=== PATIENT | male | born 1945 | race Caucasian/White ===

== ENCOUNTER 2018-11-22 13:51 | Emergency (ER) | payer MEDICARE ==
[~2018-11-22] VITALS: Ht 177.8 cm; Wt 127.0 kg
--- OUTSIDE RECORDS SUMMARY | 2018-11-22 13:54 | XMS REPORT | Clinical Summary ---
Author Author FABIENNE [facility] Address Unknown Phone Unavailable Care Team Providers Care General Surgery Physician Assistant Name Role Phone Sharpless PCP Allergies Comments Active Allergy Reactions Severity Noted Date Amlodipine Swelling 11/03/2015 Sulfa (Sulfonamide Rash Low 11/03/2015 Antibiotics) Medications End Date Status Medication Sig Dispensed Refills Start Date Active valsartan (DIOVAN) 160 MG Take 160 mg 0 tablet by mouth daily. Active Problems Problem Noted Date Osteoarthritis of left knee 03/21/2016 Left knee DJD 03/21/2016 Primary osteoarthritis of right knee 11/25/2015 Right knee DJD 11/25/2015 Social History Date Tobacco Use Types Packs/Day Years Used Never Smoker Smokeless Tobacco: Never Used Alcohol Use Drinks/Week oz/Week Comments No Sex Assigned at Date Recorded Not on file Industry Job Start Date Occupation Not on file Not on file Not on file Travel End Travel History Travel Start No recent travel history available. 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 06/28/2017 6194-1-001 / / [id number] Simplex Hv Radiopaque Bone Cement Joints Right: Knee GODWIN:ST Implanted: Qty: 2 on 11/25/2015 by Alejandro Ledezma MD [employer] 05/21/2020 5510-F-502 / / [id number] Comp Femoral #5 R 5510-F-502 - Joints Right: Knee GODWIN:ST [id number] JUSTINO Implanted: Qty: 1 on 11/25/2015 by Alejandro Ha MD 08/09/2020 5551-L-320 / / [id number] Patella Triathlon Asymmetric Joints Right: Knee GODWIN:ST 5551-L-320 - [id number] JUSTINO Implanted: Qty: 1 on 11/25/2015 by Alejandro Ha MD 08/09/2020 5520-B-600 / / [id number] Baseplt Tri Prim Tib 6 5520-B-600 - Joints Right: Knee GODWIN:ST [id number] JUSTINO Implanted: Qty: 1 on 11/25/2015 by Alejandro Ha MD 06/28/2017 5530-P-611 / / [id number] Insrt Triathlon Tib #6 11mm - Joints Right: Knee GODWIN:ST [id number] JUSTINO Implanted: Qty: 1 on 11/25/2015 by Alejandro Ha MD 10/27/2020 5530-G-609 / / [id number] Insrt Tib Bearing 9mm Sz 6 Joints Left: Knee GODWIN:ST 5530-G-609 - [id number] JUSTINO Implanted: Qty: 1 on 03/21/2016 by Alejandro Ha MD 06/28/2017 [id number] / / [id number] Simplex Hv Cement Joints Left: Knee GODWIN Implanted: Qty: 2 on 03/21/2016 by Alejandro Faye MD 08/08/2020 5551-L-320 / / [id number] Patella Triathlon Asymmetric Joints Left: Knee [employer]WIN:ST 5551-L-320 - [id number] JUSTINO Implanted: Qty: 1 on 03/21/2016 by Alejandro Ha MD 01/03/2021 5510-F-501 / / [id number] Comp Triathlon Fem #5 5510-F-501 - Joints Left: Knee [employer]WIN:ST [id number] JUSTINO Implanted: Qty: 1 on 03/21/2016 by Alejandro Ha MD 10/27/2020 5520-B-600 / / VPDGA Baseplt Tri Prim Tib 6 5520-B-600 - Joints Left: Knee GODWIN:ST [id number] JUSTINO Implanted: Qty: 1 on 03/21/2016 by Alejandro Ha MD CS Results Not on fileafter 11/21/2017 Insurance Payer Benefit Subscriber ID Type Phone Address Plan / Group [employer] xxxxxxxxxxx MEDICARE ADV Advance Directives For more information, please contact: [address] [address] Date Inactivated Comments Code Status Date Activated 03/21/2016 2:15 PM Full Code 03/21/2016 7:29 AM This code status was determined by: Patient 11/25/2015 1:12 PM Full Code 11/25/2015 6:26 AM This code status was determined by: Patient
--- OUTSIDE RECORDS SUMMARY | 2018-11-22 13:54 | XMS REPORT ---
Author Author [facility] Address Unknown Phone Unavailable Care Team Providers Care Field Liability Generalist Name Role Phone Unavailable Unavailable Payers Payer Name Policy Type Policy Number Effective Date Expiration Date Problems This patient has no known problems. Allergies, Adverse Reactions, Alerts Allergy Name Allergy Type Status Severity Reaction(s) Onset Date Inactive Date Treating Clinician Comments No Known Allergies DA Active U 2018-06-20 00:00:00 Medications This patient has no known medications. Results Test Description Test Time Test Comments Text Results Atomic Results Result Comments GLUBED 2018-06-26 08:40:00 GLUBED (test code=GLUBED) 108 MG/DL 70-110 Performed by certified projector booth operator at [facility] [id number] 21:57:00* Test Item Value Reference Range Comments GLUBED (test code=GLUBED) 160 MG/DL 70-110 Performed by certified projector booth operator at [facility] BASIC METABOLIC [id number] 06:55:00* Test Item Value Reference Range Comments SODIUM (test code=NA) 142 mEq/L 134-147 POTASSIUM (test code=K) 3.9 mEq/L 3.4-5.0 CHLORIDE (test code=CL) 108 mEq/L 100-108 CARBON DIOXIDE (test code=CO2) 26 mEq/L 21-33 ANION GAP (test code=GAP) 12 0-20 GLUCOSE (test code=GLU) 186 mg/dL 70-110 BLOOD UREA NITROGEN (test code=BUN) 24 mg/dL 7-18 GLOMERULAR FILTRATION RATE (test code=GFR) 65.8 70-80 Units of measure=ml/min/1.73 m2 CREATININE (test code=CREAT) 1.1 mg/dL 0.6-1.3 CALCIUM (test code=CA) 8.5 mg/dL 8.0-10.5 COMMENTS: To be done morning of Heart CathCBC W/AUTO [id number] 06:43:00* Test Item Value Reference Range Comments WHITE BLOOD CELL (test code=WBC) 17.07 x10 3/uL 4.5-11.0 RED BLOOD CELL (test code=RBC) 4.32 x10 6/uL 4.00-5.60 HEMOGLOBIN (test code=HGB) 14.2 g/dL 12.5-16.9 HEMATOCRIT (test code=HCT) 45.1 % 37.5-50.7 MEAN CELL VOLUME (test code=MCV) 104.4 fL 81.0-99.0 MEAN CELL HGB (test code=MCH) 32.9 pg 27.0-33.0 MEAN CELL HGB CONCETRATION (test code=MCHC) 31.5 g/dL 33.0-37.0 RED CELL DISTRIBUTION WIDTH CV (test code=RDW) 13.8 % 11.5-14.5 RED CELL DISTRIBUTION WIDTH SD (test code=RDW-SD) 53.5 fL 37.0-54.0 PLATELET COUNT (test code=PLT) 274 x10 3/uL 150-400 MEAN PLATELET VOLUME (test code=MPV) 10.8 fL 7.0-9.0 NEUTROPHIL % (test code=NT%) 90.5 % 56.0-77.0 IMMATURE GRANULOCYTE % (test code=IG%) 0.6 % 0.0-2.0 LYMPHOCYTE % (test code=LY%) 6.1 % 14.0-32.0 MONOCYTE % (test code=MO%) 2.6 % 4.8-9.0 EOSINOPHIL % (test code=EO%) 0.0 % 0.3-3.7 BASOPHIL % (test code=BA%) 0.2 % 0.0-2.0 NUCLEATED RBC % (test code=NRBC%) 0.0 % 0-0 NEUTROPHIL # (test code=NT#) 15.45 x10 3/uL 2.0-7.6 IMMATURE GRANULOCYTE # (test code=IG#) 0.10 x10 3/uL 0.00-0.03 LYMPHOCYTE # (test code=LY#) 1.04 x10 3/uL 1.0-3.8 MONOCYTE # (test code=MO#) 0.45 x10 3/uL 0.1-0.8 EOSINOPHIL # (test code=EO#) 0.00 x10 3/uL 0.0-0.2 BASOPHIL # (test code=BA#) 0.03 x10 3/uL 0.0-0.2 NUCLEATED RBC # (test code=NRBC#) 0.00 x10 3/uL 0.0-0.1 MANUAL DIFF REQUIRED (test code=MDIFF) NO COMMENTS: To be done morning of Heart CathBASIC METABOLIC [id number] 08:36:00* Test Item Value Reference Range Comments SODIUM (test code=NA) 142 mEq/L 134-147 POTASSIUM (test code=K) 4.1 mEq/L 3.4-5.0 CHLORIDE (test code=CL) 107 mEq/L 100-108 CARBON DIOXIDE (test code=CO2) 25 mEq/L 21-33 ANION GAP (test code=GAP) 14 0-20 GLUCOSE (test code=GLU) 120 mg/dL 70-110 BLOOD UREA NITROGEN (test code=BUN) 21 mg/dL 7-18 GLOMERULAR FILTRATION RATE (test code=GFR) 73.5 70-80 Units of measure=ml/min/1.73 m2 CREATININE (test code=CREAT) 1.0 mg/dL 0.6-1.3 CALCIUM (test code=CA) 9.0 mg/dL 8.0-10.5 [id number] 08:36:00* Test Item Value Reference Range Comments MAGNESIUM (test code=MAG) 2.20 mg/dL 1.8-2.4 CBC W/AUTO [id number] 07:26:00* Test Item Value Reference Range Comments WHITE BLOOD CELL (test code=WBC) 16.03 x10 3/uL 4.5-11.0 RED BLOOD CELL (test code=RBC) 4.30 x10 6/uL 4.00-5.60 HEMOGLOBIN (test code=HGB) 14.1 g/dL 12.5-16.9 HEMATOCRIT (test code=HCT) 44.4 % 37.5-50.7 MEAN CELL VOLUME (test code=MCV) 103.3 fL 81.0-99.0 MEAN CELL HGB (test code=MCH) 32.8 pg 27.0-33.0 MEAN CELL HGB CONCETRATION (test code=MCHC) 31.8 g/dL 33.0-37.0 RED CELL DISTRIBUTION WIDTH CV (test code=RDW) 13.7 % 11.5-14.5 RED CELL DISTRIBUTION WIDTH SD (test code=RDW-SD) 52.7 fL 37.0-54.0 PLATELET COUNT (test code=PLT) 283 x10 3/uL 150-400 MEAN PLATELET VOLUME (test code=MPV) 11.0 fL 7.0-9.0 NEUTROPHIL % (test code=NT%) 90.7 % 56.0-77.0 IMMATURE GRANULOCYTE % (test code=IG%) 0.4 % 0.0-2.0 LYMPHOCYTE % (test code=LY%) 4.9 % 14.0-32.0 MONOCYTE % (test code=MO%) 3.9 % 4.8-9.0 EOSINOPHIL % (test code=EO%) 0.0 % 0.3-3.7 BASOPHIL % (test code=BA%) 0.1 % 0.0-2.0 NUCLEATED RBC % (test code=NRBC%) 0.0 % 0-0 NEUTROPHIL # (test code=NT#) 14.54 x10 3/uL 2.0-7.6 IMMATURE GRANULOCYTE # (test code=IG#) 0.06 x10 3/uL 0.00-0.03 LYMPHOCYTE # (test code=LY#) 0.79 x10 3/uL 1.0-3.8 MONOCYTE # (test code=MO#) 0.63 x10 3/uL 0.1-0.8 EOSINOPHIL # (test code=EO#) 0.00 x10 3/uL 0.0-0.2 BASOPHIL # (test code=BA#) 0.01 x10 3/uL 0.0-0.2 NUCLEATED RBC # (test code=NRBC#) 0.00 x10 3/uL 0.0-0.1 MANUAL DIFF REQUIRED (test code=MDIFF) NO COMMENTS: PRE OP PROTOCOLPROTHROMBIN [id number] 07:00:00* Test Item Value Reference Range Comments PROTHROMBIN TIME PATIENT (test code=PTP) 12.6 SECONDS 9.3-12.9 INTERNATIONAL NORMAL RATIO (test code=INR) 1.1 0.8-1.2 TARGET INR BY INDICATION Indication INR1. Prophylaxis of venous thrombosis 2.0 - 3.0 (orthopedic surgery), Prophylaxis of venous thrombosis (other than high-risk surgery), Treatment of Deep Vein Thrombosis/Pulmonary Embolism, Prevention of systemic embolism - Tissue heart valves, Acute Myocardial Infarction (to prevent systemic embolism), Valvular heart disease, Atrial Fibrillation, Bileaflet mechanical valve in aortic position.2. Mechanical prosthetic valves (high risk), 2.5 - 3.5 Presence of Lupus Anticoagulant or Antiphospholipid Antibodies, Prevention of systemic embolism - Acute Myocardial Infarction (to prevent recurrent infarct). COMMENTS: PRE OP PROTOCOLTHROMBOPLASTIN TIME [id number] 07:00:00* Test Item Value Reference Range Comments THROMBOPLASTIN TIME PARTIAL (test code=PTT) 34.9 Seconds 25.0-39.5 Therapeutic Range: 61.8-83.8 Sec Effective 05/29/2013 COMMENTS: PRE OP PROTOCOLT3 [id number] 04:10:00* Test Item Value Reference Range Comments T3 FREE (test code=T3F) 2.9 pg/mL 2.0-4.4 Performed At: [facility] [id number] [place], [place] [id number] Chandan Jackson MD Ph:[phone] COMPREHENSIVE METABOLIC [id number] 08:09:00* Test Item Value Reference Range Comments SODIUM (test code=NA) 140 mEq/L 134-147 POTASSIUM (test code=K) 4.4 mEq/L 3.4-5.0 CHLORIDE (test code=CL) 107 mEq/L 100-108 CARBON DIOXIDE (test code=CO2) 26 mEq/L 21-33 ANION GAP (test code=GAP) 11 0-20 GLUCOSE (test code=GLU) 127 mg/dL 70-110 BLOOD UREA NITROGEN (test code=BUN) 13 mg/dL 7-18 GLOMERULAR FILTRATION RATE (test code=GFR) 65.8 70-80 Units of measure=ml/min/1.73 m2 CREATININE (test code=CREAT) 1.1 mg/dL 0.6-1.3 TOTAL PROTEIN (test code=PROT) 8.0 g/dL 6.4-8.2 ALBUMIN (test code=ALB) 3.50 g/dL 3.4-5.0 CALCIUM (test code=CA) 8.6 mg/dL 8.0-10.5 BILIRUBIN TOTAL (test code=BILT) 0.80 mg/dL 0.0-1.0 SGOT/AST (test code=AST) 45 IUnit/L 15-37 SGPT/ALT (test code=ALT) 35 IUnit/L 15-65 ALKALINE PHOSPHATASE TOTAL (test code=ALKP) 62 IUnit/L 20-125 LIPID PROFILE (CORONARY RISK)2018-06-21 08:09:00* Test Item Value Reference Range Comments TRIGLYCERIDES (test code=TRIG) 72 mg/dL 40-150 CHOLESTEROL (test code=CHOL) 155 mg/dL <200 CHOLESTEROL/HDL RATIO (test code=CHOLHDL) 4.31 RATIO 3.43-4.97 RISK ASSOCIATED WITH CHOL/HDL RATIOS: RISK MALE FEMALE1/2 AVERAGE 3.43 3.27AVERAGE 4.97 4.442X AVERAGE 9.55 7.053X AVERAGE 23.39 11.04 NOTE THAT THE REFERENCE VALUE IS RELATEDTO RISK LEVELS RECOMMENDED BY THE NATL.HEART, LUNG, AND BLOOD INST. HDL CHOLESTEROL (test code=HDL) 36.0 mg/dL 32-72 LIPOPROTEIN LDL (test code=LDL) 114 mg/dL 0-100 <100 [id number] NEAR OPTIMAL/ABOVE [id number] HIGH>DX=697 VERY HIGH*Guidelines provided by the National Cholesterol EducationProgram Adult Treatment Panel III [id number] 08:09:00* Test Item Value Reference Range Comments MAGNESIUM (test code=MAG) 2.00 mg/dL 1.8-2.4 [id number] 08:09:00* Test Item Value Reference Range Comments TROPONIN-I (test code=TROPI) < 0.015 ng/mL 0.000-0.045 Negative: <=0.045 Positive: >=0.046 Correlation with serial results, other cardiac markers andclinical findings is necessary to determine the clinicalsignificance of this result. Results using different methodologies should not be comparedto one another as quantitative results may vary by method. CBC W/AUTO [id number] 07:28:00* Test Item Value Reference Range Comments WHITE BLOOD CELL (test code=WBC) 6.83 x10 3/uL 4.5-11.0 RED BLOOD CELL (test code=RBC) 4.39 x10 6/uL 4.00-5.60 HEMOGLOBIN (test code=HGB) 14.5 g/dL 12.5-16.9 HEMATOCRIT (test code=HCT) 44.5 % 37.5-50.7 MEAN CELL VOLUME (test code=MCV) 101.4 fL 81.0-99.0 MEAN CELL HGB (test code=MCH) 33.0 pg 27.0-33.0 MEAN CELL HGB CONCETRATION (test code=MCHC) 32.6 g/dL 33.0-37.0 RED CELL DISTRIBUTION WIDTH CV (test code=RDW) 13.4 % 11.5-14.5 RED CELL DISTRIBUTION WIDTH SD (test code=RDW-SD) 50.7 fL 37.0-54.0 PLATELET COUNT (test code=PLT) 249 x10 3/uL 150-400 MEAN PLATELET VOLUME (test code=MPV) 11.5 fL 7.0-9.0 NEUTROPHIL % (test code=NT%) 89.7 % 56.0-77.0 IMMATURE GRANULOCYTE % (test code=IG%) 0.3 % 0.0-2.0 LYMPHOCYTE % (test code=LY%) 7.8 % 14.0-32.0 MONOCYTE % (test code=MO%) 1.8 % 4.8-9.0 EOSINOPHIL % (test code=EO%) 0.0 % 0.3-3.7 BASOPHIL % (test code=BA%) 0.4 % 0.0-2.0 NUCLEATED RBC % (test code=NRBC%) 0.0 % 0-0 NEUTROPHIL # (test code=NT#) 6.13 x10 3/uL 2.0-7.6 IMMATURE GRANULOCYTE # (test code=IG#) 0.02 x10 3/uL 0.00-0.03 LYMPHOCYTE # (test code=LY#) 0.53 x10 3/uL 1.0-3.8 MONOCYTE # (test code=MO#) 0.12 x10 3/uL 0.1-0.8 EOSINOPHIL # (test code=EO#) 0.00 x10 3/uL 0.0-0.2 BASOPHIL # (test code=BA#) 0.03 x10 3/uL 0.0-0.2 NUCLEATED RBC # (test code=NRBC#) 0.00 x10 3/uL 0.0-0.1 MANUAL DIFF REQUIRED (test code=MDIFF) NO [id number] 22:16:00* Test Item Value Reference Range Comments TROPONIN-I (test code=TROPI) 0.027 ng/mL 0.000-0.045 Negative: <=0.045 Positive: >=0.046 Correlation with serial results, other cardiac markers andclinical findings is necessary to determine the clinicalsignificance of this result. Results using different methodologies should not be comparedto one another as quantitative results may vary by method. COMMENTS: 3 troponins total (including troponin done in ED)CBC W/AUTO DIFF 2018-06-20 20:10:00* Test Item Value Reference Range Comments WHITE BLOOD CELL (test code=WBC) 4.95 x10 3/uL 4.5-11.0 RED BLOOD CELL (test code=RBC) 4.60 x10 6/uL 4.00-5.60 HEMOGLOBIN (test code=HGB) 15.1 g/dL 12.5-16.9 HEMATOCRIT (test code=HCT) 48.0 % 37.5-50.7 MEAN CELL VOLUME (test code=MCV) 104.3 fL 81.0-99.0 MEAN CELL HGB (test code=MCH) 32.8 pg 27.0-33.0 MEAN CELL HGB CONCETRATION (test code=MCHC) 31.5 g/dL 33.0-37.0 RED CELL DISTRIBUTION WIDTH CV (test code=RDW) 13.4 % 11.5-14.5 RED CELL DISTRIBUTION WIDTH SD (test code=RDW-SD) 51.8 fL 37.0-54.0 PLATELET COUNT (test code=PLT) x10 3/uL 150-400 SEE PLATELET ESTIMATE IMMATURE PLATELET FRACTION (test code=IPF) 7.2 % 0.9-11.2 MEAN PLATELET VOLUME (test code=MPV) 11.3 fL 7.0-9.0 NEUTROPHIL % (test code=NT%) 66.9 % 56.0-77.0 IMMATURE GRANULOCYTE % (test code=IG%) 0.2 % 0.0-2.0 LYMPHOCYTE % (test code=LY%) 24.2 % 14.0-32.0 MONOCYTE % (test code=MO%) 6.1 % 4.8-9.0 EOSINOPHIL % (test code=EO%) 1.8 % 0.3-3.7 BASOPHIL % (test code=BA%) 0.8 % 0.0-2.0 NUCLEATED RBC % (test code=NRBC%) 0.0 % 0-0 NEUTROPHIL # (test code=NT#) 3.31 x10 3/uL 2.0-7.6 IMMATURE GRANULOCYTE # (test code=IG#) 0.01 x10 3/uL 0.00-0.03 LYMPHOCYTE # (test code=LY#) 1.20 x10 3/uL 1.0-3.8 MONOCYTE # (test code=MO#) 0.30 x10 3/uL 0.1-0.8 EOSINOPHIL # (test code=EO#) 0.09 x10 3/uL 0.0-0.2 BASOPHIL # (test code=BA#) 0.04 x10 3/uL 0.0-0.2 NUCLEATED RBC # (test code=NRBC#) 0.00 x10 3/uL 0.0-0.1 MANUAL DIFF REQUIRED (test code=MDIFF) NO PLT [id number] 20:10:00* Test Item Value Reference Range Comments PLATELET ESTIMATE (test code=PLTEST) 168-210 THOUSAND ADEQUATE PLATELET MORPHOLOGY (test code=PLTMORPH) LARGE PLATELETS RARE PLATELET AGGREGATION B-TYPE NATRIURETIC [id number] 20:08:00* Test Item Value Reference Range Comments B-TYPE NATRIURETIC PEPTIDE (test code=BNP) 254.9 PG/ML 0-100 [id number] 19:35:00* Test Item Value Reference Range Comments TROPONIN-I (test code=TROPI) 0.033 ng/mL 0.000-0.045 Negative: <=0.045 Positive: >=0.046 Correlation with serial results, other cardiac markers andclinical findings is necessary to determine the clinicalsignificance of this result. Results using different methodologies should not be comparedto one another as quantitative results may vary by method. BASIC METABOLIC [id number] 19:14:00* Test Item Value Reference Range Comments SODIUM (test code=NA) 139 mEq/L 134-147 POTASSIUM (test code=K) 4.5 mEq/L 3.4-5.0 CHLORIDE (test code=CL) 105 mEq/L 100-108 CARBON DIOXIDE (test code=CO2) 27 mEq/L 21-33 ANION GAP (test code=GAP) 12 0-20 GLUCOSE (test code=GLU) 98 mg/dL 70-110 BLOOD UREA NITROGEN (test code=BUN) 12 mg/dL 7-18 GLOMERULAR FILTRATION RATE (test code=GFR) 59.5 70-80 Units of measure=ml/min/1.73 m2 CREATININE (test code=CREAT) 1.2 mg/dL 0.6-1.3 CALCIUM (test code=CA) 9.1 mg/dL 8.0-10.5 T4 [id number] 19:14:00* Test Item Value Reference Range Comments T4 FREE (test code=T4F) 0.9 ng/dL 0.77-1.61 THYROID STIMULATING [id number] 19:14:00* Test Item Value Reference Range Comments THYROID STIMULATING HORMONE (test code=TSH) 3.02 0.42-5.47 Results in [place]-International Units/mL CBC W/AUTO [id number] 19:12:00* Test Item Value Reference Range Comments WHITE BLOOD CELL (test code=WBC) 4.95 x10 3/uL 4.5-11.0 RED BLOOD CELL (test code=RBC) 4.60 x10 6/uL 4.00-5.60 HEMOGLOBIN (test code=HGB) 15.1 g/dL 12.5-16.9 HEMATOCRIT (test code=HCT) 48.0 % 37.5-50.7 MEAN CELL VOLUME (test code=MCV) 104.3 fL 81.0-99.0 MEAN CELL HGB (test code=MCH) 32.8 pg 27.0-33.0 MEAN CELL HGB CONCETRATION (test code=MCHC) 31.5 g/dL 33.0-37.0 RED CELL DISTRIBUTION WIDTH CV (test code=RDW) 13.4 % 11.5-14.5 RED CELL DISTRIBUTION WIDTH SD (test code=RDW-SD) 51.8 fL 37.0-54.0 PLATELET COUNT (test code=PLT) x10 3/uL 150-400 SEE PLATELET ESTIMATE IMMATURE PLATELET FRACTION (test code=IPF) 7.2 % 0.9-11.2 MEAN PLATELET VOLUME (test code=MPV) 11.3 fL 7.0-9.0 NEUTROPHIL % (test code=NT%) 66.9 % 56.0-77.0 IMMATURE GRANULOCYTE % (test code=IG%) 0.2 % 0.0-2.0 LYMPHOCYTE % (test code=LY%) 24.2 % 14.0-32.0 MONOCYTE % (test code=MO%) 6.1 % 4.8-9.0 EOSINOPHIL % (test code=EO%) 1.8 % 0.3-3.7 BASOPHIL % (test code=BA%) 0.8 % 0.0-2.0 NUCLEATED RBC % (test code=NRBC%) 0.0 % 0-0 NEUTROPHIL # (test code=NT#) 3.31 x10 3/uL 2.0-7.6 IMMATURE GRANULOCYTE # (test code=IG#) 0.01 x10 3/uL 0.00-0.03 LYMPHOCYTE # (test code=LY#) 1.20 x10 3/uL 1.0-3.8 MONOCYTE # (test code=MO#) 0.30 x10 3/uL 0.1-0.8 EOSINOPHIL # (test code=EO#) 0.09 x10 3/uL 0.0-0.2 BASOPHIL # (test code=BA#) 0.04 x10 3/uL 0.0-0.2 NUCLEATED RBC # (test code=NRBC#) 0.00 x10 3/uL 0.0-0.1 MANUAL DIFF REQUIRED (test code=MDIFF) NO PLT [id number] 19:12:00* Test Item Value Reference Range Comments PLATELET ESTIMATE (test code=PLTEST) THOUSAND ADEQUATE PROTHROMBIN [id number] 19:05:00* Test Item Value Reference Range Comments PROTHROMBIN TIME PATIENT (test code=PTP) 11.9 SECONDS 9.3-12.9 INTERNATIONAL NORMAL RATIO (test code=INR) 1.1 0.8-1.2 TARGET INR BY INDICATION Indication INR1. Prophylaxis of venous thrombosis 2.0 - 3.0 (orthopedic surgery), Prophylaxis of venous thrombosis (other than high-risk surgery), Treatment of Deep Vein Thrombosis/Pulmonary Embolism, Prevention of systemic embolism - Tissue heart valves, Acute Myocardial Infarction (to prevent systemic embolism), Valvular heart disease, Atrial Fibrillation, Bileaflet mechanical valve in aortic position.2. Mechanical prosthetic valves (high risk), 2.5 - 3.5 Presence of Lupus Anticoagulant or Antiphospholipid Antibodies, Prevention of systemic embolism - Acute Myocardial Infarction (to prevent recurrent infarct). THROMBOPLASTIN TIME [id number] 19:05:00* Test Item Value Reference Range Comments THROMBOPLASTIN TIME PARTIAL (test code=PTT) 20.5 Seconds 25.0-39.5 Therapeutic Range: 61.8-83.8 Sec Effective 05/29/2013 BASIC METABOLIC [id number] 19:04:00* Test Item Value Reference Range Comments SODIUM (test code=NA) 139 mEq/L 134-147 POTASSIUM (test code=K) 4.5 mEq/L 3.4-5.0 CHLORIDE (test code=CL) 105 mEq/L 100-108 CARBON DIOXIDE (test code=CO2) 27 mEq/L 21-33 ANION GAP (test code=GAP) 12 0-20 GLUCOSE (test code=GLU) 98 mg/dL 70-110 BLOOD UREA NITROGEN (test code=BUN) 12 mg/dL 7-18 GLOMERULAR FILTRATION RATE (test code=GFR) 59.5 70-80 Units of measure=ml/min/1.73 m2 CREATININE (test code=CREAT) 1.2 mg/dL 0.6-1.3 CALCIUM (test code=CA) 9.1 mg/dL 8.0-10.5 T4 [id number] 19:04:00* Test Item Value Reference Range Comments T4 FREE (test code=T4F) ng/dL 0.77-1.61 THYROID STIMULATING [id number] 19:04:00* Test Item Value Reference Range Comments THYROID STIMULATING HORMONE (test code=TSH) 0.42-5.47 CBC W/AUTO [id number] 18:57:00* Test Item Value Reference Range Comments WHITE BLOOD CELL (test code=WBC) 4.95 x10 3/uL 4.5-11.0 RED BLOOD CELL (test code=RBC) 4.60 x10 6/uL 4.00-5.60 HEMOGLOBIN (test code=HGB) 15.1 g/dL 12.5-16.9 HEMATOCRIT (test code=HCT) 48.0 % 37.5-50.7 MEAN CELL VOLUME (test code=MCV) 104.3 fL 81.0-99.0 MEAN CELL HGB (test code=MCH) 32.8 pg 27.0-33.0 MEAN CELL HGB CONCETRATION (test code=MCHC) 31.5 g/dL 33.0-37.0 RED CELL DISTRIBUTION WIDTH CV (test code=RDW) 13.4 % 11.5-14.5 RED CELL DISTRIBUTION WIDTH SD (test code=RDW-SD) 51.8 fL 37.0-54.0 PLATELET COUNT (test code=PLT) x10 3/uL 150-400 IMMATURE PLATELET FRACTION (test code=IPF) 7.2 % 0.9-11.2 MEAN PLATELET VOLUME (test code=MPV) 11.3 fL 7.0-9.0 NEUTROPHIL % (test code=NT%) 66.9 % 56.0-77.0 IMMATURE GRANULOCYTE % (test code=IG%) 0.2 % 0.0-2.0 LYMPHOCYTE % (test code=LY%) 24.2 % 14.0-32.0 MONOCYTE % (test code=MO%) 6.1 % 4.8-9.0 EOSINOPHIL % (test code=EO%) 1.8 % 0.3-3.7 BASOPHIL % (test code=BA%) 0.8 % 0.0-2.0 NUCLEATED RBC % (test code=NRBC%) 0.0 % 0-0 NEUTROPHIL # (test code=NT#) 3.31 x10 3/uL 2.0-7.6 IMMATURE GRANULOCYTE # (test code=IG#) 0.01 x10 3/uL 0.00-0.03 LYMPHOCYTE # (test code=LY#) 1.20 x10 3/uL 1.0-3.8 MONOCYTE # (test code=MO#) 0.30 x10 3/uL 0.1-0.8 EOSINOPHIL # (test code=EO#) 0.09 x10 3/uL 0.0-0.2 BASOPHIL # (test code=BA#) 0.04 x10 3/uL 0.0-0.2 NUCLEATED RBC # (test code=NRBC#) 0.00 x10 3/uL 0.0-0.1 MANUAL DIFF REQUIRED (test code=MDIFF) NO PLT [id number] 18:57:00* Test Item Value Reference Range Comments PLATELET ESTIMATE (test code=PLTEST) THOUSAND ADEQUATE CBC W/AUTO [id number] 18:57:00* Test Item Value Reference Range Comments WHITE BLOOD CELL (test code=WBC) 4.95 x10 3/uL 4.5-11.0 RED BLOOD CELL (test code=RBC) 4.60 x10 6/uL 4.00-5.60 HEMOGLOBIN (test code=HGB) 15.1 g/dL 12.5-16.9 HEMATOCRIT (test code=HCT) 48.0 % 37.5-50.7 MEAN CELL VOLUME (test code=MCV) 104.3 fL 81.0-99.0 MEAN CELL HGB (test code=MCH) 32.8 pg 27.0-33.0 MEAN CELL HGB CONCETRATION (test code=MCHC) 31.5 g/dL 33.0-37.0 RED CELL DISTRIBUTION WIDTH CV (test code=RDW) 13.4 % 11.5-14.5 RED CELL DISTRIBUTION WIDTH SD (test code=RDW-SD) 51.8 fL 37.0-54.0 PLATELET COUNT (test code=PLT) x10 3/uL 150-400 IMMATURE PLATELET FRACTION (test code=IPF) 7.2 % 0.9-11.2 MEAN PLATELET VOLUME (test code=MPV) 11.3 fL 7.0-9.0 NEUTROPHIL % (test code=NT%) 66.9 % 56.0-77.0 IMMATURE GRANULOCYTE % (test code=IG%) 0.2 % 0.0-2.0 LYMPHOCYTE % (test code=LY%) 24.2 % 14.0-32.0 MONOCYTE % (test code=MO%) 6.1 % 4.8-9.0 EOSINOPHIL % (test code=EO%) 1.8 % 0.3-3.7 BASOPHIL % (test code=BA%) 0.8 % 0.0-2.0 NUCLEATED RBC % (test code=NRBC%) 0.0 % 0-0 NEUTROPHIL # (test code=NT#) 3.31 x10 3/uL 2.0-7.6 IMMATURE GRANULOCYTE # (test code=IG#) 0.01 x10 3/uL 0.00-0.03 LYMPHOCYTE # (test code=LY#) 1.20 x10 3/uL 1.0-3.8 MONOCYTE # (test code=MO#) 0.30 x10 3/uL 0.1-0.8 EOSINOPHIL # (test code=EO#) 0.09 x10 3/uL 0.0-0.2 BASOPHIL # (test code=BA#) 0.04 x10 3/uL 0.0-0.2 NUCLEATED RBC # (test code=NRBC#) 0.00 x10 3/uL 0.0-0.1 MANUAL DIFF REQUIRED (test code=MDIFF) NO PLT [id number] 18:57:00* Test Item Value Reference Range Comments PLATELET ESTIMATE (test code=PLTEST) THOUSAND ADEQUATE - XR CHEST 1 [id number] 18:56:00 FAX: Se Campos MD [phone] [place]: St: ADM Name: FRANKIE HORNE [facility] : [birth year] Age/S: 72/M [address] [place] [address] Unit #: [id number] Loc: [place] [address] Phys: Se Davis MD Acct: [id number] Dis Date: Status: ADM IN PHONE #: [phone] Exam Date: 06/20/2018 1850 FAX #: [phone] Reason: Chest Pain EXAMS: CPT CODE: [id number] XR CHEST 1 V [id number] CHEST, ONE VIEW: H ISTORY: Acute chest pain. COMPARISON EXAM(S): None available FINDINGS: This single portable view was obtained at 1845 hours on 06/20/2018 and shows moderate enlargement of the cardiac silhouette asso ciated with vascular congestion and mild diffuse interstitial prominence. No consolidations, effusions or evidence of pneumothorax. Degener ative changes are noted in the cervical spine and thoracic spine. The ske letal structures are otherwise unremarkable. IMPRESSION : 1. Cardiomegaly associated with vascular congestion and mild bilateral interstitial prominence. Mild edema seems likely. 2. No prio r exams for comparison. 3. Otherwise unremarkable exam. SL:01 Electronica lly Signed by Annie Irvin on 06/20/2018 at 1856 Reported and signed by: Christian Irvin M.D. CC: Se Davis MD Technologist: RT Maria(R) [facility] Date/Time/By: 06/20/2018 (1855) : By: [email or web address] Orig Print D/T: S: 06/20/2018 (1858) PAGE 1 Signed Report
[2018-11-22] MEDS ORDERED: LIDOCAINE 1% W/EPINEPHRINE 20 ML VIAL INJ ONE (17:00)
[2018-11-22] MEDS ORDERED: BACITRACIN ZINC 0.9GM TP ONE (18:20)
== END 2018-11-22 18:30 | disposition home or self-care (01) ==
LOC: ER 13:51
DX: S81.812A Laceration without foreign body, left lower leg, initial encounter (principal); W01.198A Fall on same level from slipping, tripping and stumbling with subsequent striking against other object, initial encounter; Y93.01 Activity, walking, marching and hiking; Y92.008 Other place in unspecified non-institutional (private) residence as the place of occurrence of the external cause; I10 Essential (primary) hypertension; E78.5 Hyperlipidemia, unspecified
CPT/HCPCS: 99282